=== PATIENT | male | born 1975 | race Caucasian/White ===

== ENCOUNTER 2022-01-09 11:09 | Emergency (ER) | payer OTHER ==
[~2022-01-09] VITALS: Ht 175.3 cm; Wt 93.9 kg
[2022-01-09] MEDS ORDERED: BEBTELOVIMAB 175 MG INJ IV ONE (11:45)
[2022-01-09] MEDS ORDERED: AZITHROMYCIN250 MG PO (13:44)
== END 2022-01-09 14:06 | disposition home or self-care (01) ==
LOC: ER 11:30
DX: U07.1 COVID-19 (principal); R05.9 Cough, unspecified; I10 Essential (primary) hypertension; E78.5 Hyperlipidemia, unspecified; E03.9 Hypothyroidism, unspecified; I50.9 Heart failure, unspecified; I25.2 Old myocardial infarction; Z95.5 Presence of coronary angioplasty implant and graft; Z95.810 Presence of automatic (implantable) cardiac defibrillator
CPT/HCPCS: 99283